=== PATIENT | female | born 1975 | race Caucasian/White ===

== ENCOUNTER 2017-01-22 09:57 | Observation (INO) | payer OTHER ==
[2017-01-22] VITALS (8 sets, daily range): BP systolic 112–137; BP diastolic 60–89
[~2017-01-22] VITALS: Ht 170.2 cm; Wt 79.0 kg
[~2017-01-22 09:57] MED LIST: CARAFATE EQUIVAL1 GM PO; IMITREX50 MG; PAXIL10 MG PO; PEPCID40 MG PO; PROAIR HFA IN; [UNRECOGNIZED DRUG - OTHER]
--- NOTE | 2017-01-22 11:34 | ED NURSING NOTES ---
Clinical Report - Nurses [facility] [address] [place] [address] 01/22/2017 9:58 [id number] Triage time 10:Jan 22 2017. Acuity: LEVEL 3. Chief Complaint: ABDOMINAL PAIN and NAUSEA. 10:10 01/22/17. SEPSIS SCREEN: Sepsis Screen. Negative (no infection suspected/documented). MIROSLAVA COMA SCORE: Miroslava Coma Scale: 15- eyes open spontaneously (4); best verbal response- oriented x 4 (5); best motor response- obeys commands (6). --10:10 Michelle Cooley R.N. 10:03 01/22/17. BP: 154/90 (regular adult cuff) taken on the left arm, while sitting. HR: 73. RR: 18 (regular). O2 saturation: 99% on room air. Temp: 98.8 F. Pain level now: 06/03. --10:10 Michelle Cooley R.N. Weight: 76.6 kg stated. Height/Length: 66 inches Per Patient. BMI: 27.3. --10:07 Michelle Cooley R.N. Medications Paxil Oral (Tablet 20 mg) 1 tablet, daily. --10:07 Michelle Cooley R.N. Allergies None. --10:07 Michelle Cooley R.N. History Arrived by private vehicle. Historian: patient. ( Patient has scheduled appt for lap coly. consult on Wednesday next week). Onset. (almost two weeks ago). She has had nausea and dull, constant abdominal pain. The pain is described as located in the RUQ and associated with nausea. Last oral intake by patient was breakfast (1/2 cup chicken broth). 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 PAST MEDICAL HX: Immunizations: up-to-date. Last normal menstrual period- nexplano control. ( gallbladder issues). SOCIAL HX: Never smoker. Occasional alcohol use; consumes wine. Patient smells of ETOH in the emergency department. No drug use. Recent travel in the last week- [place]. She has had contact with a sick person in the hospital. No infectious disease exposure. ABUSE ASSESSMENT: No report of abuse. --10:10 Michelle Cooley R.N. PAST MEDICAL HX: ( Error patient did not smell of ETOH when coming into emergency departement). --12:30 Michelle Cooley R.N. PROBLEMS: Peptic Ulcer Disease. --10:08 Michelle Cooley R.N. ADDITIONAL SURGERIES: Colonoscopy. DNC. Endoscopy. Tonsillectomy. --10:08 Michelle Cooley R.N. Interventions ID band on patient. To treatment room. --10:10 Michelle Cooley R.N. PHYSICAL ASSESSMENT Ambulatory to room. ( Patient admits to being constipated). GENERAL / NEURO / PSYCH: Alert. Oriented X 4. Appears in pain. HEENT: Mucous membranes are pink. RESPIRATORY: Respirations not labored. Breath sounds within normal limits. CVS: Capillary refill less than 2 seconds. GI / : The patient has had nausea. Abdomen soft. Abdominal tenderness. Guarding present. Bowel sounds within normal limits. SKIN: Skin is warm. --10:12 Michelle Cooley R.N. 12:40 01/22/17. BP: 138/76. HR: 60. RR: 16. O2 saturation: 99%. Temp: 98.6 F. Pain level now: 12/04. --12:49 Ellyn Vides R.N. NURSING PROGRESS NOTES 10:12 01/22/17. The plan of care for this patient has been created. Patient gowned. Head of bed elevated. Reassurance given. Two patient identifiers checked. Call light placed in reach. Side rails up x 1. Bed placed in lowest position. Brakes of bed on. Patient ready for evaluation- chart flagged and ED physician notified. --10:12 Michelle Cooley R.N. 10:29 01/22/2017 Site #1 started via IV in the left hand with an 20g angiocath; one attempt. Blood drawn: rainbow set. Labeled in the presence of the patient and sent to the lab. Saline lock flushed with 10 mL saline. --10:29 Ellyn Vides R.N. 10:31 01/22/2017 Zofran (Ondansetron HCl) IVP 4 mg given diluted in NS 10mL over 3 minute(s) via site #1. Allergies verified and confirmed 5 rights. IV patency established. IV site checked: no pain, redness, or swelling. IV flushed thoroughly pre- and post-medication administration. IVP given by RN. --10:31 Ellyn Vides R.N. Patient identifiers checked. Call light placed in reach. Side rails up. Bed placed in lowest position. Brakes of bed on. Patient ready for evaluation- ED physician notified. --10:31 Ellyn Vides R.N. 11:00 01/22/2017 Dilaudid (HYDROmorphone HCl PF) IVP 0.5 mg given. via site #1. Allergies verified, confirmed 5 rights and sedative warning given to the patient. IV patency established. IV site checked: no pain, redness, or swelling. IV flushed thoroughly pre- and post-medication administration. IVP given by RN. --11:05 Ellyn Vides R.N. Reassessment after medication administered. She reports no complaints, she is calm and resting quietly and she has had no adverse reaction. Overall patient status is improved- she states feels better. --11:38 Ellyn Vides R.N. 11:50 01/22/2017 Started bag #2 1000 mL IV Fluids IV NS (Saline); at 500 mL/hr via site #1 --11:50 Ellyn Vides R.N. 12:03 01/22/17. BP: 137/80. HR: 62. RR: 16. O2 saturation: 98%. Pain level now: 02/01. --12:03 Ellyn Vides R.N. 12:08 01/22/2017 Dilaudid (HYDROmorphone HCl PF) IVP 0.5 mg given. via site #1. Allergies verified, confirmed 5 rights and sedative warning given to the patient. IV patency established. IV site checked: no pain, redness, or swelling. IV flushed thoroughly pre- and post-medication administration. IVP given by RN. --12:08 Ellyn Vides R.N. 12:26 01/22/17. ( pt up to bathroom, indep, gait is steady). --12:26 Ellyn Vides R.N. 12:44 01/22/2017 IV Fluids IV NS Discontinued: bag #2 upon admission. Total amount infused: 500 mL. --12:49 Ellyn Vides R.N. 12:45 01/22/2017 Site #[address] upon admission; patent, no pain and no signs of infection or infiltration. --12:50 Ellyn Vides R.N. EKG time: (12:09). EKG was performed by a tech and shown to the ED physician. --12:54 Lindsay Tinsley. DISPOSITION / DISCHARGE Admitted to Acute Care (12:45). Report was given to a nurse. Report included patient's care, treatment, medications, reviewed medication reconcilliation, and condition (including any recent changes or anticipated changes). All questions were answered. Report was acknowledged and care was transferred. Bed obtained and ready (1200 PM). Patient's personal items include: shirt, pants, shoes and purse; items were placed in belongings bag, given to the patient and transported with the patient. --12:47 Ellyn Vides R.N. Departure time: 12:47. --12:47 Ellyn Vides R.N. 12:41 01/22/17. BP: 136/76. HR: 60. RR: 16. O2 saturation: 99%. Temp: 98.6 F. Pain level now: 12/04. --12:52 Ellyn Vides R.N. Locked/Released at 01/22/2017 19:12 by Ellyn Vides R.N.
--- NOTE | 2017-01-22 11:34 | ED CLINICAL REPORT ---
Clinical Report - Physicians/Mid Levels [facility] [address] [place] [address] 01/22/2017 9:58 Patient: GREGORIO GRIMM Time Seen: 10:09. Arrived- By private vehicle. Historian- patient. HISTORY OF PRESENT ILLNESS Chief Complaint: ABDOMINAL PAIN. At its maximum, severity described as moderate. When seen in the E.D., severity described as moderate. Modifying factors- worsened by movement. Relieved by rest. It is described as "pain" and it is described as located in the right upper quadrant and radiating to the right upper back. This started about 2 weeks ago and is still present. It was gradual in onset and has been waxing/waning. The patient has had nausea. (Last oral intake by patient was breakfast (1/2 cup chicken broth).). Similar symptoms previously: Recent medical care: The patient was seen recently by a health care provider. Seen for similar symptoms. REVIEW OF SYSTEMS No constipation, black stools, hematemesis, difficulty with urination or pain with urination. No urinary frequency, bloody stools, fever, headache or sore throat. No chest pain or back pain. Denies current . All systems otherwise negative, except as recorded above. PAST HISTORY PCP: Dr Dawkins Peptic Ulcer Disease. Gallbladder disease - "schedule for lap andrzej next week" SURGERIES: Colonoscopy. DNC. Endoscopy. Tonsillectom. SOCIAL HISTORY Never smoker. Occasional alcohol use. Last drink was 6 days ago. No drug use. Is a local resident. Patient is employed. (works at [employer]). ADDITIONAL NOTES The nursing notes have been reviewed. PHYSICAL EXAM Vital Signs: 01/22/2017 10:03 BP: 154/90. HR: 73. RR: 18. O2 saturation: 99%. Temp: 98.8 F. Pain level now: 8/10. Appearance: Alert. Oriented X3. Patient in mild distress. Eyes: Eyes normal inspection. No scleral icterus or pale conjunctivae. ENT: Nose normal. Pharynx normal. No pharyngeal erythema or tonsillar exudate. The mucous membranes are not dry. Neck: Normal inspection. Neck supple. CVS: Normal heart rate and rhythm. Heart sounds normal. Pulses normal. Respiratory: No respiratory distress. Breath sounds normal. Abdomen: Soft. Moderate tenderness in the right upper quadrant. No Lagunas's sign present. No mass. No rebound tenderness, distention or guarding. Back: Normal inspection. Skin: Skin warm and dry. Normal skin color. Normal skin turgor. Extremities: Extremities exhibit normal ROM. No lower extremity edema. Neuro: Oriented X 3. No motor deficit. LABS, X-RAYS, AND EKG EKG: EKG time: (12:09). Normal sinus rhythm. Rate: 60. Normal P waves. Normal JB. Normal QRS complex. Normal axis. Normal ST and T waves. The study has been interpreted contemporaneously by me. The EKG appears to be a good tracing. Chest X-ray: No acute disease. Normal lung markings present. Normal heart size. Mediastinum normal. Great vessels normal. No infiltrate. Views: AP (portable). Technique: good. The X-rays were interpreted contemporaneously by me. Laboratory Tests: UA-Culture if indicated: (BRUNILDA: 01/22/2017 10:25) ( MsgRcvd 01/22/2017 10:54) Final results Test Result Flag Units (Reference) URINE COLOR YELLOW URINE APPEARANCE CLEAR URINE GLUCOSE NEGATIVE (NEGATIVE) URINE BILIRUBIN NEGATIVE (NEGATIVE) URINE KETONE NEGATIVE (NEGATIVE) URINE SPECIFIC GRAVITY 1.015 (1.010-1.030) URINE PH 7.0 (5.0-8.0) URINE PROTEIN NEGATIVE (NEGATIVE) URINE UROBILINOGEN 4.0 EU/dL (0.2-1.0) The urobilinogen reagent area may react with interferingsubstances known to react with Phillip's reagent such asp-aminosalicylic acid and sulfonamides. Atypical colorreactions may be obtained in the presence of highconcentrations of p-aminobenzoic acid. The absence ofurobilinogen cannot be determined with this test. URINE NITRITE NEGATIVE (NEGATIVE) URINE BLOOD NEGATIVE (NEGATIVE) URINE LEUK ESTERASE NEGATIVE (NEGATIVE) URINE RBC RARE rbc/hpf (0-1) URINE WBC 0-1 wbc/hpf (0-1) URINE EPITHELIAL CELLS 0-1 EPI/hpf (0-5) URINE BACTERIA NONE SEEN (NONE SEEN) URINE COMMENT CULT NOT INDICATED 1+ MUCOUS STRANDSURINE CULTURES ARE SET-UP BASED ON THE FOLLOWING CRITERIA:POSITIVE NITRITEPOSITIVE LEUKOCYTE ESTERASEGREATER THAN 10 WHITE BLOOD CELLSMODERATE (2+) OR GREATER BACTERIA Urine: (BRUNILDA: 01/22/2017 10:25) ( [facility] 01/22/2017 10:50) Final results Test Result Flag Units (Reference) URINE NEGATIVE CBC w Diff: (BRUNILDA: 01/22/2017 10:14) ( [facility] 01/22/2017 10:55) Final results Test Result Flag Units (Reference) WHITE BLOOD COUNT 6.6 K/uL (4.5-11.5) RED BLOOD COUNT 4.07 M/uL (4.00-5.20) HEMOGLOBIN 12.2 gm/dL (12.0-16.0) HEMATOCRIT 37.1 % (36.0-46.0) MEAN CELL VOLUME 91 fL (80-100) MEAN CORPUSCULAR HGB 30 pg (26-34) MEAN CORPUSCULAR HGB CONC 33 g/dL (31-37) RED CELL DISTRIBUTION WIDTH 13.5 % (11.6-14.8) PLATELET COUNT 454 H K/uL (150-400) NEUTROPHIL % 68.3 % (50-75) LYMPH % 22.4 L % (25-40) MONO % 5.2 % (3-14) EOSINOPHIL % 3.6 % (0-4) BASOPHIL % 0.5 % (0-2) Urine Drug Screen: (BRUNILDA: 01/22/2017 10:25) ( [facility] 01/22/2017 10:49) Final results Test Result Flag Units (Reference) AMPHETAMINE/METHAMPHETAMINE NEGATIVE (NEGATIVE) BARBITURATE NEGATIVE (NEGATIVE) BENZODIAZEPINE NEGATIVE (NEGATIVE) CANNABINOID NEGATIVE (NEGATIVE) COCAINE NEGATIVE (NEGATIVE) ECSTASY NEGATIVE (NEGATIVE) METHADONE NEGATIVE (NEGATIVE) OPIATE POSITIVE H (NEGATIVE) The urine drug screen is a qualitative screening test fordrug overdose and abuse. All screen results should beconsidered as presumptive.Drugs screened for are as follows:BenzodiazepinesCocaineAmphetamines/MetamphetaminesTHC (Tetrahydrocannabinol)OpiatesBarbituratesEcstasyMethadonePositive results are unconfirmed. For confirmation, notifythe lab for the specimen to be sent to the reference lab.All confirmations must be performed by a differentmethodology.The ingestion of natural herbal and plant productscontaining Ephedra/Ephedra metabolites can produce in urineone or more substances capable of cross reacting withamphetamine/methamphetamine immunoassays. These testsprovide a preliminary result only. A more specificalternative chemical method must be used to obtain aconfirmed analytical result. Lactate, Serum: (BRUNILDA: 01/22/2017 10:45) ( CogRcvd 01/22/2017 11:11) Final results Test Result Flag Units (Reference) LACTIC ACID 0.8 mmol/L (0.4-2.0) CMP: (BRUNILDA: 01/22/2017 10:45) ( MsgRcvd 01/22/2017 11:07) Final results Test Result Flag Units (Reference) GLUCOSE 94 mg/dL (70-110) BUN 17 mg/dL (7-18) CREATININE 0.7 mg/dL (0.6-1.3) Estimated GFR >60 mL/min Estimated GFR- >60 mL/min Note: Persistent reduction over 3 months in eGFR<60 mL/min/1.73 m2 defines CKD. Patients with eGFR values>=60 mL/min/1.73 m2 may also have CKD if evidence ofpersistent proteinuria. Additional information may be foundat www.kidney.org. SODIUM 139 mmol/L (136-145) POTASSIUM 3.7 mmol/L (3.5-5.1) CHLORIDE 106 mmol/L (98-107) CARBON DIOXIDE 27 mmol/L (21-32) CALCIUM 8.8 mg/dL (8.5-10.1) TOTAL PROTEIN 6.8 g/dL (6.4-8.2) ALBUMIN 3.6 g/dL (3.3-5.0) BILIRUBIN, TOTAL 0.4 mg/dL (0.0-1.0) ALKALINE PHOSPHATASE 72 U/L (46-116) AST (SGOT) 16 U/L (15-37) ALT (SGPT) 36 U/L (12-78) LIPASE 84 U/L (73-393) AMYLASE 25 U/L (25-115) ETHYL ALCOHOL <3 L mg/dL (3-10) . Pulse Oximetry: 01/22/2017 10:03 O2 saturation: 99%. (FIO2 - room air). Interpretation: normal. Note - Tests: (US Abdomen - done : 1) Cholelithiasis w/o evidence of inflammatory changes or obstruction. 2) Right renal cysts). PROGRESS AND PROCEDURES Course of Care: Normal Saline 1 liter IVPB given. Zofran 4 mg IVP given. Dilaudid 0.5 mg IVP given. Patient is stable. Physical exam findings are improved. Symptoms better. Pt with intractable biliary colic. She will go to the OR today, rather than wait until Tu. Discussed case with on-call health care provider, (Mitchel call placed 11:18). Reviewed test results. Agreed upon treatment plan. Patient/family counseled. Old ED records reviewed. Transition orders written. Disposition: Observation in Acute Care via Surgery. Condition: stable and improved. CLINICAL IMPRESSION Biliary colic with multiple gallstones (intractable). INSTRUCTIONS Follow-up: Screening today revealed the patient's blood pressure to be in the hypertensive range. The patient should follow up with a primary care provider for blood pressure management. (Electronically signed by Yaakov Siddiqui DO 01/22/2017 14:39)
--- NOTE | 2017-01-22 11:34 | ED ORDER SUMMARY ---
..... Patient: GREGORIO GRIMM OrderSheet [facility] VisitID: [id number] [place] [address] 41y, F Registration Date/Time: 01/22/2017 ORDER SHEET Weight: 76.6 kg (stated) Allergies: None GENERAL ORDERS: CBC w Diff Urgent (10:01/22/2017 [facility]) (Ack 10:16 OHrosemarienandez) (10:23 JSanders R.N.) CMP Urgent (10:01/22/2017 [facility]) (Ack 10:16 OHernandez) (10:23 JSanders R.N.) UA-Culture if indicated [facility] ([facility] 10:16 OHrosemarienandez) (10:24 JSanders R.N.) Amylase Urgent (10:01/22/2017 [facility] (Ack 10:16 OHrosemarienandez) (10:23 JSanders R.N.) Lipase Urgent (10:01/22/2017 [facility] (Ack 10:16 OHernandez) (10:23 JSanders R.N.) Ethyl Alcohol Urgent (10:01/22/2017 [facility] (Ack 10:16 OHernandez) (10:23 JSanders R.N.) Lactate, Serum Urgent (10:01/22/2017 [facility] (Ack 10:16 OHrosemarienandez) (10:23 JSanders R.N.) Urine Drug Screen Urgent (10:01/22/2017 [facility] (Ack 10:16 OHrosemarienandez) (10:24 JSanders R.N.) Urine Urgent (10:01/22/2017 [facility] (Ack 10:16 OHrosemarienandez) (10:24 JSanders R.N.) NPO (10:01/22/2017 [facility] (Ack 10:16 OHernandez) (10:17 JSanders R.N.) Call (Place call to): (Dr Grullon) (11:18 01/22/2017 [facility]) (Ack 11:25 MErosemarienandez) (11:48 MErosemarienandez) Chest 1V Urgent (11:34 01/22/2017 [facility]) (Ack 11:49 OHrosemarienandez) (12:19 JBest R.N.) EKG - ER Stat (11:35 01/22/2017 [facility]) (Ack 11:49 [place]) (12:09 [place]) MEDICATION ORDERS: IV FLUIDS: IV NS : initial bolus 1000 mL (1000 mL/hr), then 500 mL/hr for X2 (NOW) (10:14 01/22/2017 [facility]) (Ack 10:17 JSanders R.N.) (11:50 JBest R.N.) Zofran IV 4 mg (NOW) (10:14 01/22/2017 [facility]) (Ack 10:17 JSanders R.N.) (10:31 JBest R.N.) Dilaudid IV 0.5 mg (may repeat x 1 prn pain) (10:50 01/22/2017 [facility]) (Ack 11:04 JBest R.N.) (11:05 JBest R.N.) ORDER SHEET NOTES: [Electronically signed by Yaakov Siddiqui DO (14:39 01/22/2017)] [Electronically signed by Ellyn Vides R.N. (19:12 01/22/2017)] [Electronically locked/signed by Ellyn Vides R.N. (19:12 01/22/2017)]
--- NOTE | 2017-01-22 11:34 | ED ORDER SUMMARY ---
..... Patient: GREGORIO GRIMM OrderSheet [facility] VisitID: [id number] [place] [address] 41y, F Registration Date/Time: 01/22/2017 ORDER SHEET Weight: 76.6 kg (stated) Allergies: None GENERAL ORDERS: CBC w Diff Urgent (10:[facility] (Ack 10:16 OHrosemarienandez) (10:23 JSanders R.N.) CMP Urgent (10:01/22/2017 [facility] (Ack 10:16 OHernandez) (10:23 JSanders R.N.) UA-Culture if indicated Urgent (10:[facility]22/2017 [facility] (Ack 10:16 OHrosemarienandez) (10:24 JSanders R.N.) Amylase Urgent (10:01/22/2017 [facility] (Ack 10:16 OHrosemarienandez) (10:23 JSanders R.N.) Lipase Urgent (10:01/22/2017 [facility]) (Ack 10:16 OHernandez) (10:23 JSanders R.N.) Ethyl Alcohol Urgent (10:01/22/2017 [facility]) (Ack 10:16 OHernandez) (10:23 JSanders R.N.) Lactate, Serum Urgent (10:01/22/2017 [facility]) (Ack 10:16 OHrosemarienandez) (10:23 JSanders R.N.) Urine Drug Screen Urgent (10:01/22/2017 [facility] (Ack 10:16 OHrosemarienandez) (10:24 JSanders R.N.) Urine Urgent (10:01/22/2017 [facility]) (Ack 10:16 OHrosemarienandez) (10:24 JSanders R.N.) NPO (10:01/22/2017 [facility]) (Ack 10:16 OHernandez) (10:17 JSanders R.N.) Call (Place call to): (Dr Grullon) (11:18 01/22/2017 [facility]) (Ack 11:25 DCrosemarienandez) (11:48 DCrosemarienandez) Chest 1V Urgent (11:34 01/22/2017 [facility]) (Ack 11:49 OHrosemarienandez) (12:19 JBest R.N.) EKG - ER Stat (11:35 01/22/2017 [facility]) (Ack 11:49 [place]) (12:09 [place]) MEDICATION ORDERS: IV FLUIDS: IV NS : initial bolus 1000 mL (1000 mL/hr), then 500 mL/hr for X2 (NOW) (10:14 01/22/2017 [facility]) (Ack 10:17 JSanders R.N.) (11:50 JBest R.N.) Zofran IV 4 mg (NOW) (10:14 01/22/2017 [facility]) (Ack 10:17 JSanders R.N.) (10:31 JBest R.N.) Dilaudid IV 0.5 mg (may repeat x 1 prn pain) (10:50 01/22/2017 [facility]) (Ack 11:04 JBest R.N.) (11:05 JBest R.N.) ORDER SHEET NOTES: [Electronically signed by Yaakov Siddiqui DO (14:39 01/22/2017)] [Electronically signed by Ellyn iVdes R.N. (19:12 01/22/2017)] [Electronically locked/signed by Ellyn Vides R.N. (19:12 01/22/2017)]
--- NOTE | 2017-01-22 11:59 | DIAGNOSTIC IMAGING REPORT ---
PROCEDURE: XR CHEST 1 VIEW INDICATION: EPIGASTRIC PAIN / PREOP TECHNIQUE: Portable AP view 11:41 COMPARISON: None. FINDINGS: Lungs are clear. Heart and mediastinum are normal. Thorax is normal. IMPRESSION: 1. Negative chest.
[2017-01-22] MEDS ORDERED: PAXIL10 MG PO (13:09)
[2017-01-22] MEDS ORDERED: NORCO1 TA1 PO (17:32)
--- NOTE | 2017-01-22 17:33 | Provider's Discharge Care Plan ---
Problem, Goal, Plan Problem List 1. BILIARY COLIC WITH GALLSTONE
--- NOTE | 2017-01-22 17:33 | Provider's Discharge Care Plan ---
Problem, Goal, Plan Problem List 1. BILIARY COLIC WITH GALLSTONE
--- NOTE | 2017-01-22 17:42 | DIAGNOSTIC IMAGING REPORT ---
PROCEDURE: XR INTRAOPERATIVE LAP ALEYDA INDICATION: IOC TECHNIQUE: Intraoperative fluoroscopy provided for Dr. Grullon performing an intraoperative cholangiogram following cholecystectomy. Total fluoroscopy time 7 seconds. Cumulative dose 2.5 mGy. COMPARISON: Abdominal ultrasound 05/13/2015 FINDINGS: Three intraoperative fluoroscopic spot images of the right upper quadrant of the abdomen demonstrate cannulation of the cystic duct stump and opacification of the intrahepatic and extrahepatic biliary tree. There are no filling defects. There is normal passage of contrast into the duodenum. IMPRESSION: 1. Negative intraoperative cholangiogram.
--- NOTE | 2017-01-22 19:13 | ED MED RECONCILIATION SUMMARY ---
Patient: GREGORIO GRIMM Medication Reconciliation Report [facility] VisitID: [id number] [place] [address] 41y, F Registration Date/Time: 01/22/2017 Weight: 76.6 kg Height/Length: 66 in. BMI: 27.3 ALLERGIES: None The patient's Home Medications are listed below: THE FOLLOWING MEDICATIONS NEED TO BE RECONCILED: Paxil Oral (20 mg) 1 tablet, daily The source(s) of the original Home Medication information: Not obtained. The following Medications were given to the patient in the Emergency Department: Zofran [IVP] IVP 4 mg diluted in NS 10 mL, administered: 01/22/2017 10:31:00 AM Dilaudid [IVP] IVP 0.5 mg, administered: 01/22/2017 11:00:00 AM IV NS IV Fluids bolus 0, then 500 mL/hr, administered: 01/22/2017 11:50:00 AM Dilaudid [IVP] IVP 0.5 mg, administered: 01/22/2017 12:08:00 PM The following Medications were prescribed to the patient: None.
--- NOTE | 2017-01-22 19:13 | ED MED RECONCILIATION SUMMARY ---
Patient: GREGORIO GRIMM Medication Reconciliation Report [facility] VisitID: [id number] [address] [place] [address] 41y, F Registration Date/Time: 01/22/2017 Weight: 76.6 kg Height/Length: 66 in. BMI: 27.3 ALLERGIES: None The patient's Home Medications are listed below: THE FOLLOWING MEDICATIONS NEED TO BE RECONCILED: Paxil Oral (20 mg) 1 tablet, daily The source(s) of the original Home Medication information: Not obtained. The following Medications were given to the patient in the Emergency Department: Zofran [IVP] IVP 4 mg diluted in NS 10 mL, administered: 01/22/2017 10:31:00 AM Dilaudid [IVP] IVP 0.5 mg, administered: 01/22/2017 11:00:00 AM IV NS IV Fluids bolus 0, then 500 mL/hr, administered: 01/22/2017 11:50:00 AM Dilaudid [IVP] IVP 0.5 mg, administered: 01/22/2017 12:08:00 PM The following Medications were prescribed to the patient: None.
--- NOTE | 2017-01-22 19:13 | ED DISCHARGE INSTRUCTIONS ---
Patient: GREGORIO GRIMM General Instructions [facility] VisitID: [id number] [address] 41y, F Registration Date/Time: 01/22/2017 Biliary colic with multiple gallstones (intractable). INSTRUCTIONS Follow-up: Screening today revealed the patient's blood pressure to be in the hypertensive range. The patient should follow up with a primary care provider for blood pressure management. (Electronically signed by Yaakov Siddiqui DO 01/22/2017 14:39)
--- NOTE | 2017-01-22 19:13 | ED MAR SUMMARY ---
..... Medication Administration Record Formerly [facility] [address] [place] [address] Patient: GREGORIO GRIMM Visit ID: [id number] 41y, F Weight: 76.6 kg Height/Length: 66 in BMI: 27.3 ALLERGIES: None Given 10:31 01/22/2017 Ellyn Vides R.N. Medication Administered: ZOFRAN [IVP] (ONDANSETRON HCL), Dose: 4 mg IVP over 3 minute(s), In: NS 10 mL, Site: #1 left hand. Medication Ordered: Zofran IV 4 mg (NOW). Given 11:00 01/22/2017 Ellyn Vides R.N. Medication Administered: DILAUDID [IVP] (HYDROMORPHONE HCL PF), Dose: 0.5 mg IVP, Site: #1 left hand. Medication Ordered: Dilaudid IV 0.5 mg (may repeat x 1 prn pain). Start 11:50 01/22/2017 Ellyn Vides R.N., Stop 12:44 01/22/2017 Ellyn Vides R.N. Medication Administered: IV NS (SALINE), Dose: IV Fluids, Rate: 500 mL/hr, Dispensed: 1000 mL bag, Site: #1 left hand. Medication Ordered: IV NS : initial bolus 1000 mL (1000 mL/hr), then 500 mL/hr for X2 (NOW). Given 12:08 01/22/2017 Ellyn Vides R.N. Medication Administered: DILAUDID [IVP] (HYDROMORPHONE HCL PF), Dose: 0.5 mg IVP, Site: #1 left hand. Medication Ordered: Dilaudid IV 0.5 mg (may repeat x 1 prn pain).
--- NOTE | 2017-01-22 19:13 | ED DISCHARGE INSTRUCTIONS ---
Patient: GREGORIO GRIMM General Instructions [facility] VisitID: [id number] [address] [place] [address] 41y, F Registration Date/Time: 01/22/2017 Biliary colic with multiple gallstones (intractable). INSTRUCTIONS Follow-up: Screening today revealed the patient's blood pressure to be in the hypertensive range. The patient should follow up with a primary care provider for blood pressure management. (Electronically signed by Yaakov Siddiqui DO 01/22/2017 14:39)
--- NOTE | 2017-01-22 19:13 | ED MAR SUMMARY ---
..... Medication Administration Record [facility] [address] [place] [address] Patient: GREGORIO GRIMM Visit ID: [id number] 41y, F Weight: 76.6 kg Height/Length: 66 in BMI: 27.3 ALLERGIES: None Given 10:31 01/22/2017 Ellyn Vdies R.N. Medication Administered: ZOFRAN [IVP] (ONDANSETRON HCL), Dose: 4 mg IVP over 3 minute(s), In: NS 10 mL, Site: #1 left hand. Medication Ordered: Zofran IV 4 mg (NOW). Given 11:00 01/22/2017 Ellyn Vides R.N. Medication Administered: DILAUDID [IVP] (HYDROMORPHONE HCL PF), Dose: 0.5 mg IVP, Site: #1 left hand. Medication Ordered: Dilaudid IV 0.5 mg (may repeat x 1 prn pain). Start 11:50 01/22/2017 Ellyn Vides R.N., Stop 12:44 01/22/2017 Ellyn Vides R.N. Medication Administered: IV NS (SALINE), Dose: IV Fluids, Rate: 500 mL/hr, Dispensed: 1000 mL bag, Site: #1 left hand. Medication Ordered: IV NS : initial bolus 1000 mL (1000 mL/hr), then 500 mL/hr for X2 (NOW). Given 12:08 01/22/2017 Ellyn Vides R.N. Medication Administered: DILAUDID [IVP] (HYDROMORPHONE HCL PF), Dose: 0.5 mg IVP, Site: #1 left hand. Medication Ordered: Dilaudid IV 0.5 mg (may repeat x 1 prn pain).
--- NOTE | 2017-01-22 19:58 | CONSULTATION REPORT ---
DATE OF CONSULTATION: CHIEF COMPLAINT: 1. Right upper quadrant abdominal pain HISTORY OF PRESENT ILLNESS: The patient is a 41-year-old woman with the 10-day history of waxing and waning right upper quadrant abdominal pain, made worse by eating foods, especially fatty foods. Things got gradually worse over the last 4 days, but became acutely worse today on the day of admission. She was found to have gallstones on ultrasound. There is no history of jaundice or pancreatitis. MEDICAL/SURGICAL HISTORY: Past medical history: Peptic ulcer disease. Past surgical history: Dilatation and curettage x2, colonoscopy, and EGD. MEDICATIONS: 1. Paxil 20 mg daily for premenopausal symptoms. 2. Implanted contraceptive. ALLERGIES: 1. SOY PRODUCTS. SOCIAL HISTORY: The patient is , but . 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 She does not smoke cigarettes or take alcohol. FAMILY HISTORY: Father had elevated cholesterol and diverticulitis. There is also a family history of colon cancer. REVIEW OF SYSTEMS: A multipoint review of systems was obtained. The patient denies any additional symptomatic problems such as head and neck lesions, sinus problems, cough, hemoptysis, sore throat, chest pain, palpitations, shortness of breath, hematemesis, hematochezia, diarrhea, constipation, neurologic problems, motor, sensory problems. PHYSICAL EXAMINATION: GENERAL: The patient's blood pressure is 133/81, pulse of 59, respirations 20, temperature 98.4, O2 saturation 97%. HEENT: Her ears and nose demonstrated no gross external lesions. Eyes are equal. There is no icterus. NECK: Without palpable masses. There was no thyromegaly. CHEST: Clear to auscultation. HEART: Regular, without murmur or gallop. ABDOMEN: Revealed localized tenderness and guarding in right subcostal region. Her bowel sounds are normal. She was nondistended. EXTREMITIES: Symmetric. She moves without restriction. LAB/IMAGING: Laboratory tests were reviewed. These demonstrate a white count of 6.6, hemoglobin, hematocrit of 12.2, 37.1. Electrolytes were normal. Liver enzymes, lipase and amylase are also normal. Ultrasound: Demonstrated multiple gallstones. IMPRESSION: 1. Acute cholecystitis. PLAN: I have recommend patient undergo a laparoscopic cholecystectomy, cholangiography. I explained to patient the nature of this operation, as well as alternatives, benefits and risks. Risks discussed included infection, bleeding, scars, pain, damage to local structures, common duct stone, pancreatitis, open surgery, and others. She would like to proceed with surgery as described to her.
--- NOTE | 2017-01-22 20:03 | OPERATIVE REPORT ---
DATE OF SURGERY: 01/22/2017 SURGEON: Yaakov Grullon MD PREOPERATIVE DIAGNOSIS: 1. Cholelithiasis with acute and chronic cholecystitis POSTOPERATIVE DIAGNOSIS: 1. Cholelithiasis with acute and chronic cholecystitis PROCEDURE PERFORMED: 1. Laparoscopic cholecystectomy with cholangiography ANESTHESIA: General with endotracheal tube. COMPLICATIONS: No intraoperative complications were encountered. INDICATIONS: The patient is a 41-year-old woman with cholelithiasis and persistent right upper quadrant pain. SURGICAL TECHNIQUE: The patient was taken to the operating room, where a general anesthetic was administered and patient prepped and draped in usual sterile fashion. A local anesthetic of 0.5% Marcaine with epinephrine was used at each incision site. An infraumbilical incision was made and a Veress needle used to insufflate the abdominal cavity. A 10 mm trocar was passed and 3 additional trocars placed in the upper abdomen. The gallbladder was elevated and dissection started over the gallbladder neck. The cystic duct and cystic artery were isolated. A clip was placed at neck of the gallbladder and a fluoroscopic cholangiogram was carried out. This demonstrated free flow into duodenum and no filling defects. The cystic artery was also clipped and the cystic duct doubly clipped. These structures were divided and the gallbladder stripped from the gallbladder fossa using electrocautery. It was placed in a specimen bag, morcellated and extracted. Irrigation was used and the gallbladder bed was found to be hemostatic with no signs of bile leakage. Additional Marcaine was instilled, gas was evacuated, and the midline trocar sites closed with interrupted subcuticular 4-0 Vicryl suture for the skin. Steri-Strips and dressings were placed and the patient left in stable condition.
[2017-01-23 02:57] VITALS: BP 112/68
[2017-01-23 06:40] VITALS: BP 138/83
[2017-01-23 10:54] VITALS: BP 129/84
--- NOTE | 2017-01-23 11:03 | Progress Note ---
Subjective General Post op day 1 post lap andrzej Pt. has no new complaints, feels OK and is tolerating PO. She is on her last dose of affirmev. Physical Exam Vital Signs / I&Os Vital Signs Date Time Temp Pulse Resp B/P Pulse O2 O2 Flow FiO2 Ox Delivery Rate 01/23 1054 98.4 58 16 129/84 98 0.0 01/23 0855 Room Air 0.0 01/23 0640 99.1 60 13 138/83 99 Room Air 01/23 0257 98.1 67 18 112/68 97 Room Air 01/23 0000 Room Air 01/22 2226 98.2 72 18 131/78 98 Room Air 01/23 2008 63 18 117/69 100 Room Air 01/23 2000 Room Air 01/22 1945 59 18 112/74 100 Nasal 1.0 Cannula 01/22 1926 63 18 120/75 100 Nasal 1.0 Cannula 01/22 1901 75 18 129/60 100 Nasal 1.0 Cannula 01/22 1848 98.1 78 18 128/71 100 Nasal 2.0 Cannula 01/22 1835 75 20 112/71 100 01/22 1830 64 21 117/67 100 01/22 1825 67 12 120/69 100 01/22 1820 72 11 121/70 100 01/22 1815 63 15 119/69 100 01/22 1810 98.2 61 10 127/68 100 01/22 1805 63 16 132/73 100 01/22 1800 65 17 130/80 100 01/22 1755 63 10 129/74 100 01/22 1750 64 10 142/82 100 01/22 1745 63 12 135/74 100 01/22 1741 97.5 65 11 126/77 100 Nasal 4.0 Cannula 01/22 1421 98.6 59 18 137/89 100 01/22 1303 98.4 59 20 133/81 97 Room Air I&O 01/22 0800 01/22 1600 01/23 0000 Intake Total 0 1361 Output Total 400 1100 Balance -400 261 General Appearance Alert, Oriented X3, Cooperative Abdomen Normal exam, Normal bowel sounds, Soft, dressings intact Assessment and Plan Problem List 1. BILIARY COLIC WITH GALLSTONE Plan home today, follow up as ordered.
== END 2017-01-23 13:15 | disposition home or self-care (01) ==
LOC: ED SRH 09:57 → ACUTE2 SRH 11:47 → TRANS SRH 11:47 → SDC SRH 11:47 → TRANS SRH 11:48 → ACUTE2 SRH 12:59 → SDC SRH 13:15 → ACUTE2 SRH 13:15
PROVIDERS: Surgery; ADMIT Family Medicine
PROC: BF101ZZ Fluoroscopy of Bile Ducts using Low Osmolar Contrast (ICD-10-PCS; principal; 2017-01-22 15:15)
PROC: 0FT44ZZ Resection of Gallbladder, Percutaneous Endoscopic Approach (ICD-10-PCS; principal; 2017-01-22 15:15)
DX: K80.12 Calculus of gallbladder with acute and chronic cholecystitis without obstruction (principal); R11.0 Nausea
CPT/HCPCS: 29229; 29230; 29264; 50002; 60001; 70002; 80102; 80212; 80248; 82794; 82807; 83338; 83339; 83348; 83432; 83587; 83920; 83937; 83982; 84038; 90004; 90074; 90100; 92010; 92031; 92235; 92530; 92760; 92761; 92762; 92763; 92764; 92765; 92766; 92767; 93070; 95059